=== PATIENT | female | born 1960 | race Caucasian/White ===

== ENCOUNTER 2019-01-04 00:40 | Outpatient (CLI) | payer OTHER, SELFPAY ==
--- NOTE | 2019-01-04 11:47 | DI.US_ITS ---
SYMPTOMS/DIAGNOSIS: ABD PAIN, R10.11 ABDOMEN ULTRASOUND: The liver shows slightly increased echogenicity consistent with fatty infiltration. No biliary dilatation or focal liver lesions are seen. The gallbladder has a normal appearance, without evidence of stones or wall thickening. The kidneys, pancreas, spleen and aorta appear normal. No ascites is present. IMPRESSION: Mild hepatic steatosis. No acute abnormality.
== END 2019-01-04 01:00 ==
PROVIDERS: PCP Nurse Practitioner Family; Visit Provider Nurse Practitioner Family
DX: R10.11 Right upper quadrant pain (principal); K76.0 Fatty (change of) liver, not elsewhere classified
CPT/HCPCS: 76700

== ENCOUNTER 2019-04-07 01:19 | Outpatient (CLI) | payer OTHER, SELFPAY ==
--- NOTE | 2019-04-07 15:58 | DI.MAMMO_ITS ---
EXAM: MG MAMMO SCREENING CLINICAL HISTORY: SCREENING Z12.39 TECHNIQUE: Bilateral full field digital CC and MLO mammographic images were obtained with 3D tomosyn thesis and utilizing computer aided detection (CAD). COMPARISON: Available for comparison. FINDINGS: Masses/Architectural Distortion: None seen. Microcalcifications: No suspicious pleomorphic-type are seen. Skin Thickening/Nipple Retraction: None. IMPRESSION: 1. No significant interval change with no specific features of malignancy noted. 2. Unless there is more urgent need, screening mammography is recommended, as per [employer] guidelines. ACR BI-RAD Category- 1 Negative Breast Density - Category B - Scattered areas of fibroglandular density A negative radiographic report should not delay biopsy if a dominant or clinically suspicious mass is present. Up to ten percent of cancers are not identified on mammography. A negative report may reinforce clinical impression. Adenosis and dense breasts may obscure an underlying neoplasm. False positive reports average 6 to 10%. Patient will receive a letter notifying them of these results.
== END 2019-04-07 01:39 ==
PROVIDERS: PCP Nurse Practitioner Family; Visit Provider Nurse Practitioner Family
DX: Z12.31 Encounter for screening mammogram for malignant neoplasm of breast (principal)
CPT/HCPCS: 77063; 77067

== ENCOUNTER 2019-09-20 10:57 | Emergency (ER) | payer OTHER, SELFPAY ==
[2019-09-20] VITALS (56 sets, daily range): BP systolic 131–176; BP diastolic 58–115; PULSE 57–100; RESP 9–23; TEMP 36.4; O2SAT 95–100
--- NOTE | 2019-09-20 11:30 | DI.RAD_ITS ---
EXAM: XR CHEST 2V PA LATERAL CLINICAL HISTORY: chest heaviness TECHNIQUE: 2D digital imaging was performed. COMPARISON: No exams were available for comparison FINDINGS: MEDIASTINUM: Normal. HEART: Normal. PULMONARY VASCULATURE: Normal. LUNGS: Clear. PLEURAL SPACE: No pleural effusion or pneumothorax. BONE:Normal. OTHER FINDINGS:Normal. IMPRESSION: No acute pulmonary findings. DATA REPOSITORY: RADIATION DOSE DELIVERED:
[2019-09-20 11:31] LABS: Abs Immature Grans 0.02 k/cumm (0.0-0.09); Absolute Basophil Count 0.02 k/cumm (0.0-0.2); Absolute Eosinophil Count 0.06 k/cumm (0.0-0.7); Absolute Lymphocyte Count 1.98 k/cumm (1.2-3.4); Absolute Monocyte Count 0.44 k/cumm (0.11-0.7); Absolute Neutrophil Count 4.04 k/cumm (1.2-6.7); Basophils % 0.3; Eosinophils % 0.9; HCT 44.4 % (36.0-46.0); HGB 14.7 g/dL (12.0-15.5); Immature Grans % 0.3 %; Lymphocytes % 30.2; Mean Corp. HGB Concentration 33.1 g/dL (32.0-36.0); Mean Corpuscular Volume 93.7 fL (80-95); Mean Platelet Volume 10.1 fL (8.0-11.0); Monocytes % 6.7; Neutrophils % 61.6; Platelet Count 276 x1000/uL (130-400); RBC 4.74 m/cumm (4.00-5.20); RBC Distribution Width 13.8 % (11.7-14.6); White Blood Cell Count 6.56 k/cumm (4.4-10.8)
--- NOTE | 2019-09-20 11:41 | ED.GENADUL_ITS ---
Discharge Plan Disposition Patient Disposition: [facility] Condition: Serious Discharge Details Chief Complaint: Palpitatns Clinical Impression: Non-ST elevation SD (NSTEMI) Primary Care Provider: Ahmet Nash ED Provider: Desmond Hurst Home Meds and New Rx's Prescriptions: No Action No Known Home Meds RF: 0 Discharge Data Discharge Date/Time-TO BE ENTERED AT DEPARTURE: 09/20/19 16:19 Medical Decision Making 1140??59-year-old female, chronic smoker, history of high cholesterol per patient, here with bilateral arm heaviness with chest and back heaviness intermittent over the past day. Patient is saturating well in no respiratory distress. Lungs are clear to auscultation. Concern for ACS. Screening ECG was reviewed and interpreted by me: Sinus rhythm 60 bpm, short [place] 106, QTc 438, ST depressions are subtle but noted the 4 to V6, also noted subtle S1Q3T3, no STEMI, nondiagnostic. Plan to check troponin. Consider pulmonary embolism. Patient is low risk by Wells criteria. I will check d-dimer. Patient notes chronic although increased palpitations recently. While EKG does not reveal any ectopy, I did interpret rhythm strip on financial health counselor and noted intermittent PVCs that patient was experiencing as palpitations. Patient is quite anxious to be contributing to her symptoms. I will provide Ativan 0.5 mg IV as an anxiolytic. No concern for COVID-19. Patient is not a PUI. 12:13 --labs reviewed and troponin is elevated. Plan to start heparin bolus and infusion, nitro infusions to start should she have recurrent pain, aspirin 325 mg and Plavix 600 mg. Contacted [facility] transfer center to request transfer. D-dimer is elevated. I will proceed to CTA of the chest. 12:30 --I spoke with Stella, account support specialist at [facility] who will accept the patient on behalf of Dr. Farah. Reviewed ED course and treatment and no further recommendations at this time. Awaiting bed confirmation. --CT interpreted by radiology: IMPRESSION: No evidence of pulmonary embolus, thoracic aortic dissection or aneurysm. 1458 --repeat ECG reviewed and interpreted by me: Sinus rhythm 64 bpm, short [place] 118, ST depressions less pronounced laterally, no ST elevation, T wave inversion again noted lead III. Patient reassessed multiple times and has not had recurrent chest pain. Currently stable. Still awaiting transfer. We called [facility] transfer center to request updated they noted hopefully within the hour. HPI General Mode of arrival: ambulatory . Date/Time Provider Initiated Documentation: 09/20/19 11:00 . Limitations to Documentation: no limitations . Information obtained by: patient . HPI Narrative: 59-year-old female smoker with history of elevated cholesterol, presents with chief complaint of heaviness in her upper extremities. Patient notes symptoms started yesterday morning and have persisted. Patient notes intermittent heaviness bilateral upper arms and also some heaviness in her chest and back. Symptoms worse when she was going outside to garden today. She had associated dizziness. She also notes some palpitations which she has had chronic intermittently but more frequent recently. She has no leg swelling or calf pain. No recent immobility. No fever. No cough. No recent travel. Related Data Home Medications Medication Instructions Recorded Confirmed Unknown [No Known Home Meds] 09/20/19 09/20/19 Allergies Allergy/AdvReac Type Severity Reaction Status Date / Time No Known Allergies Allergy Unverified 09/20/19 11:08 General Stated Complaint: Palpitatns YVES: 2 Review of Systems All systems reviewed & are unremarkable except as noted in HPI and below Cardiovascular Cardiovascular: Reports as per HPI Respiratory Respiratory: Reports as per HPI [facility] Medical History Postmenopausal LMP 2011 Tobacco use disorder Surgical History Colposcopy (~1985) For cervical dysplasia Ligation of fallopian tube (05/03/86) Family History Mother , Cervical CA at age 50. Personal history of malignant neoplasm Cervical CA Father No problems noted. Sister No problems noted. Social History Smoking/Tobacco Use Status: Current every day Tobacco Type: cigarettes Alcohol Intake: never Substance use type: does not use Do you feel safe at home: Yes Do you feel safe in your relationship?: Yes Exam Const General: cooperative, well developed and anxious Orientation: alert and awake HENMT Mouth: moist mucous membranes Eyes Conjunctivae: normal conjunctivae Sclera: normal sclerae Neck Neck: trachea midline and no JVD Resp Auscultation: clear to auscultation bilaterally, no rales, no rhonchi and no w heezes Cardio Jugular venous pressure: no JVD Rate: regular rate and not tachycardic Rhythm: regular rhythm Pulses: radial pulses present GI Palpation: soft, not firm, no guarding, no masses, not rigid and nontender Auscultation: normal bowel sounds Skin General skin exam: no rashes or lesions noted Neuro General: patient alert, patient awake, patient oriented x3 and tone normal Extrem General: no calf tenderness and no edema Psych Appearance: grossly normal Mental Status: mental status grossly normal Course Vital Signs Vital signs: Vital Signs Temperature 36.4 C L 09/20/19 11:03 Pulse 69 09/20/19 11:03 Respiratory Rate 13 09/20/19 11:03 Blood Pressure 153/91 H 09/20/19 11:03 Pulse Oximetry 100 09/20/19 11:03 Temperature 36.4 C L 09/20/19 11:03 Temperature Source Skin 09/20/19 11:03 Pulse 69 09/20/19 11:03 Respiratory Rate 13 09/20/19 11:03 Respiratory Effort 09/20/19 11:08 Blood Pressure 153/91 H 09/20/19 11:03 Blood Pressure Position Sitting 09/20/19 11:03 Pulse Oximetry 100 09/20/19 11:03 Oxygen Delivery Method Room Air 09/20/19 11:03 Oxygen Flow Rate 0 09/20/19 11:03 Lab/Test Results Lab/Test Results: Laboratory Tests Range/Units 09/20/19 11:20 WBC (4.4-10.8) k/cumm 6.56 RBC (4.00-5.20) m/cumm 4.74 Hgb (12.0-15.5) g/dL 14.7 Hct (36.0-46.0) % 44.4 MCV (80-95) fL 93.7 MCH (27.0-33.0) pg 31.0 MCHC (32.0-36.0) g/dL 33.1 RDW (11.7-14.6) % 13.8 Plt Count (130-400) x1000/uL 276 MPV (8.0-11.0) fL 10.1 Immature Gran % % 0.3 Neutrophils % 61.6 Lymphocytes % 30.2 Monocytes % 6.7 Eosinophils % 0.9 Basophils % 0.3 Absolute Neutrophils (1.2-6.7) k/cumm 4.04 Absolute Lymphocytes (1.2-3.4) k/cumm 1.98 Absolute Monocytes (0.11-0.7) k/cumm 0.44 Absolute Eosinophils (0.0-0.7) k/cumm 0.06 Absolute Basophils (0.0-0.2) k/cumm 0.02 Critical Care Time Critical Care Time Critical Care Time: Yes Total Critical Care Time: 45 Attestation: I spent greater than 45 number of minutes addressing this patient's immediate life threats. Please see MDM section of note. This time was spent engaged in work directly related to the patient's care, exclusive of separate procedures, and failure to initiate these interventions would have likely resulted in clinically significant or life threatening deterioration in the patient's condition.
[2019-09-20] MEDS: Normal Saline Flush 10 ML SYR IVP ×2 (11:46→16:16)
[2019-09-20] MEDS: LORazepam 2 MG/ML VIAL 0.5 MG IVP (11:46)
[2019-09-20 11:52] LABS: ALT 29 U/L (14-59); AST 22 U/L (15-37); Alkaline Phosphatase 125 U/L (46-116); BUN 15 mg/dL (7-18); Bilirubin, Total 0.3 mg/dL (0.2-1.0); CREATININE 0.86 mg/dL (0.55-1.02); Calcium 9.4 mg/dL (8.5-10.1); Chloride 103 mmol/L (98-107); Glucose 114 mg/dL (74-106); Magnesium 1.7 mg/dL (1.8-2.4); Potassium 3.9 mmol/L (3.5-5.1); Sodium 138 mmol/L (136-145); Total Protein 7.9 g/dL (6.4-8.2)
[2019-09-20 11:54] LABS: Troponin I 0.63 ng/Ml (<0.06)
[2019-09-20] MEDS: Aspirin 325 MG TAB PO (12:00)
--- NOTE | 2019-09-20 12:00 | DI.CT_ITS ---
EXAM: CT CHEST PE CTA CLINICAL HISTORY: chest pain, elevated ddimer. TECHNIQUE: Imaging Protocol: Axial CT angiography was performed with multi-slice acquisition and mu lti-planar and/or 3D reconstructions. CONTRAST MATERIAL: Intravenous: Omnipaque 350 Contrast volume:74 mL COMPARISON: CR XR CHEST 2V PA LATERAL from 09/20/2019 FINDINGS: Pulmonary Arteries: No evidence of filling defect to suggest pulmonary emboli. Tracheobronchial tree: Patent where visualized. Mediastinum and Tess: No dominant adenopathy or fluid collection. Pulmonary parenchyma: No consolidation or dominant measurable mass. No architectural distortion. Pleura: No effusion or pneumothorax. Heart: The heart is not dilated. Mild coronary artery calcification is present. Pericardial effusion . Aorta: Thoracic aorta non-dilated. No dissection. Mild atherosclerosis. Upper abdomen: Unremarkable. Bones: Age appropriate degenerative changes. IMPRESSION: No evidence of pulmonary embolus, thoracic aortic dissection or aneurysm. The findings were discussed with the emergency department on the date of the examination. RADIATION DOSE DELIVERED: 410.29mGy.cm Total DLP DATA REPOSITORY: All CT scans at this facility are submitted to the National Radiology Data Registry (NRDR) Dose Index Registry (DIR) with the [employer] (ACR). RADIATION OPTIMIZATION: All CT scans at this facility use at least one of these dose optimization te chniques: automated exposure control; mA and/or kV adjustment per patient size (includes targeted exa ms where dose is matched to clinical indication); or iterative reconstruction.
[2019-09-20 12:11] LABS: D-Dimer 715 ng/mlFEU (<500)
[2019-09-20] MEDS: Clopidogrel 300 MG TAB 600 MG PO (12:15)
[2019-09-20] MEDS: Magnesium Oxide 400 MG TAB 800 MG PO (12:16)
[2019-09-20] MEDS: Omnipaque 350 MG/ML 100 ML BTL IJ (13:06)
[2019-09-20 15:20] LABS: Troponin I 0.95 ng/Ml (<0.06)
[2019-09-20] MEDS: LORazepam 2 MG/ML VIAL (16:08)
== END 2019-09-20 16:19 | disposition short-term general hospital (02) ==
PROVIDERS: Emergency Provider Student in an Organized Health Care Education/Training Program; PCP Nurse Practitioner Family
DX: I21.4 Non-ST elevation (NSTEMI) myocardial infarction (principal); R79.1 Abnormal coagulation profile; F17.210 Nicotine dependence, cigarettes, uncomplicated
CPT/HCPCS: 36415; 71275; 80053; 93005; 96365; 96366; 96375; 96376; 99285; 71046; 83735; 84484; 85025; 85379; 93010; J2060; J3490

== ENCOUNTER 2019-10-25 11:53 | Outpatient (REF) | payer OTHER, SELFPAY ==
--- NOTE | 2019-10-25 11:30 | PAPFT_PTH ---
PATIENT: Marzena Smith LOC: N U#:[id number] AGE/SX: 59/F ROOM: RE10/25/[address]: Kamaljit Duran MD : 1960 BED: DIS: 10/25/2019 SPEC #: [id number] RECD: 10/25/19 17:47 STATUS: MADISONRafael REQ #: [id number] BERNARDINO: 10/25/19 11:[address]: Kamaljit Duran DEPT: [facility] Cytology RECD BY: Liz Schmid ENTERED: 10/25/19 17:48 SP TYPE: PAPFT OTHR DR: Ahmet Nash Tissues: 1 - CX/ENDOCX FOR PAP SMEARS Procedures: PAP THIN PREP/UVM Screening HPV DNA PROBE Comments: [id number]
== END 2019-10-25 12:13 ==
LOC: LBN 11:53
PROVIDERS: PCP Nurse Practitioner Family; Visit Provider Obstetrics & Gynecology
DX: Z12.4 Encounter for screening for malignant neoplasm of cervix (principal); Z11.51 Encounter for screening for human papillomavirus (HPV)
CPT/HCPCS: 88142; 87624

== ENCOUNTER 2019-11-30 15:01 | Outpatient (RCR) | payer OTHER, SELFPAY | END 2019-12-02 23:59 | disposition home or self-care (01) | LOC: CR 15:01 | PROVIDERS: PCP Nurse Practitioner Family; Visit Provider Family Medicine | DX: R69 Illness, unspecified (principal) ==

== ENCOUNTER 2020-01-03 14:30 | Outpatient (RCR) | payer OTHER, SELFPAY | END 2020-02-01 23:59 | disposition home or self-care (01) | LOC: CR 14:30 | PROVIDERS: PCP Nurse Practitioner Family; Visit Provider Family Medicine | DX: R69 Illness, unspecified (principal) ==

== ENCOUNTER 2020-08-09 12:05 | Outpatient (CLI) | payer OTHER, SELFPAY ==
--- NOTE | 2020-08-09 | DI.RAD_ITS ---
EXAM: XR KNEE RT 3V AP,LAT,SHANI CLINICAL HISTORY: INTERNAL DERANGEMENT RT KNEE, M23.91. TECHNIQUE: 2D digital imaging was performed. COMPARISON: No exams were available for comparison FINDINGS: BONES: No acute fracture is present. No bony destructive lesion is seen. JOINTS: The knee is normally aligned. No joint effusion is seen. The joint spaces are well maintained . SOFT TISSUE: Normal. IMPRESSION: Unremarkable radiographs of the right knee. DATA REPOSITORY: RADIATION DOSE DELIVERED:
== END 2020-08-09 12:25 ==
PROVIDERS: PCP Nurse Practitioner Family; Visit Provider Physician Assistant Medical
DX: M23.91 Unspecified internal derangement of right knee (principal)
CPT/HCPCS: 73562

== ENCOUNTER 2022-11-20 18:58 | Emergency (ER) | payer OTHER, SELFPAY ==
[2022-11-20] VITALS (47 sets, daily range): BP systolic 112–164; BP diastolic 60–103; PULSE 60–85; RESP 11–20; O2SAT 92–98
--- NOTE | 2022-11-20 19:00 | DI.RAD_ITS ---
Exam(s) XR PORTABLE CHEST AP EXAM: XR PORTABLE CHEST AP CLINICAL HISTORY: chest pain equivalent TECHNIQUE: 2D digital imaging was performed. COMPARISON: CR XR CHEST 2V PA LATERAL from 09/20/2019 FINDINGS: LUNGS: Clear. No pleural abnormality seen. HEART: Normal size. AORTA: Normal diameter. BONES: Unremarkable for age. Soft tissues: Unremarkable. IMPRESSION: No acute findings. DATA REPOSITORY: RADIATION DOSE DELIVERED:
--- NOTE | 2022-11-20 19:00 | RT.EKG_ITS ---
APPROVED REPORT Exam: Resting ECG Reason for Exam: chest pain Patient Location: E HR:85 bpm ECG Measurements Heart Rate 85 AXIS NV 117 P 65 QRSd 95 QRS 62 QT 381 T 40 QTc 453 Conclusion Sinus rhythm...normal P axis, V-rate 60- 99 sinus rhtyhm, normal axis, normal intervals, t wave inversion V1
--- NOTE | 2022-11-20 19:03 | ED.GENADUL_ITS ---
Discharge Plan Discharge Details Chief Complaint: Chest Pain ED Provider: Marco Lazo Home Meds and New Rx's Prescriptions: No Action metoprolol succinate 25 mg capsule,sprinkle,ER 24hr 25 mg PO DAILY aspirin 81 mg tablet,delayed release (DR/EC) 81 mg PO DAILY atorvastatin 80 mg tablet 80 mg PO DAILY clopidogrel 75 mg tablet 75 mg PO DAILY nitroglycerin 0.4 mg tablet, sublingual 0.4 mg SL Q5M PRN Rx Instructions: do not exceed 3 doses per episode Medical Decision Making 62-year-old female history of NSTEMI, stent, presents with cute onset lightheadedness right upper extremity paresthesia noted to be diaphoretic and cool to the touch, EKG normal sinus rhythm normal axis T wave inversion V1 otherwise nonischemic. Given patient's age prior medical history and risk factors patient is moderate risk heart score, currently hemodynamically stable not hypoxic nontachycardic. Will obtain serial troponin, basic labs, portable chest x-ray, fluid bolus prophylactic antiemetic chewable aspirin 324 close reassessment of symptoms. Consider ACS versus orthostasis versus vasovagal versus viral illness versus dehydration versus electrolyte abnormality low suspicion for CVA PE or aortic pathology given history and physical, disposition pending reassessment 19: 50 patient's coloration and perfusion exam greatly improved, no longer clammy no further paresthesia, no chest pain or shortness of breath. Hemodynamically stable. Pending two troponin and reassessment for discharge. Consider dehydration versus orthostasis versus vasovagal HPI General Date/Time Provider Initiated Documentation: 11/20/22 19:00 . HPI Narrative: 62-year-old female history of NSTEMI, stent, presents feeling lightheaded with paresthesia to right upper extremity no nausea no vomiting no shortness of breath no leg swelling or pain. No history of thromboembolic disease. No recent travel. Related Data Home Medications Medication Instructions Recorded Confirmed aspirin 81 mg tablet,delayed 81 mg PO DAILY 10/25/19 10/25/19 release atorvastatin 80 mg tablet 80 mg PO DAILY 10/25/19 10/25/19 clopidogrel 75 mg tablet 75 mg PO DAILY 10/25/19 10/25/19 metoprolol succinate 25 mg capsule 25 mg PO DAILY 10/25/19 10/25/19 sprinkle, ext. release 24 hr nitroglycerin 0.4 mg sublingual 0.4 mg sublingual Q5M PRN 10/25/19 10/25/19 tablet Allergies Allergy/AdvReac Type Severity Reaction Status Date / Time No Known Allergies Allergy Verified 05/29/20 10:43 General YVES: 2 Review of Systems Narrative: Physical Examination General: alert, awake, cooperative, appears moderately uncomfortable HEENT: normocephalic, atraumatic; PERRL, EOM intact, conjunctiva normal; no nasal discharge; moist mucous membranes, oral and pharyngeal mucosa normal, tolerating secretions Neck: supple, trachea midline; full ROM Chest: normal to inspection Respiratory: normal respiratory effort, speaking in full sentences, clear to auscultation, no wheezing, rales or rhonchi Cardiac: regular rate, regular rhythm, S1S2 intact, no murmurs rubs or gallops GI: abdomen soft, non-tender, non-distended; no palpable mass or hepatosplenomegaly Skin: Cool, diaphoretic Neuro: AAOx3, normal speech, moving all extremities Extremities: No peripheral edema Psych: Appropriate mood and affect PFSH All Active Problems (Updated 11/15/19 @ 09:56 by Chaz Tellez NP) Encounter for screening for other viral diseases (Acute) Non-STEMI (non-ST elevated myocardial infarction) (Acute) Women's annual routine gynecological examination (Acute) Medical History (Updated 11/15/19 @ 09:56 by Chaz Tellez NP) Postmenopausal LMP 2012 Tobacco use disorder Surgical History Colposcopy (~1985) For cervical dysplasia Ligation of fallopian tube (05/03/86) Family History Mother , Cervical CA at age 50. Personal history of malignant neoplasm Cervical CA Father No problems noted. Sister No problems noted. Social History (Updated 10/25/19 @ 12:56 by Ursula Duggan RN, RN) Smoking/Tobacco Use Status: Current every day Tobacco Type: cigarettes Smoking packs per day: 0.5 Smoking cigarettes per day: 10.0 Smoking risk assessment performed?: Yes Alcohol Intake: never Substance use type: does not use Do you feel safe at home: Yes Do you feel safe in your relationship?: Yes
[2022-11-20 19:29] LABS: Abs Immature Grans 0.02 10^3/uL (0.0-0.06); Absolute Basophil Count 0.05 10^3/uL (0.0-0.2); Absolute Lymphocyte Count 1.64 10^3/uL (1.2-3.4); Absolute Monocyte Count 0.67 10^3/uL (0.1-0.8); Basophils % 0.7; Eosinophils % 1.5; HCT 43.9 % (36.0-46.0); HGB 14.2 g/dL (11.2-15.7); Immature Grans % 0.3; Lymphocytes % 24.6; MCH 30.5 pg (27.0-33.0); MCHC 32.3 % (32.0-36.0); MCV 94 fL (80-95); MPV 9.8 fL (8.0-11.0); Neutrophils % 62.9; Platelet Count 232 10^3/uL (130-400); RBC 4.65 10^6/uL (3.93-5.22); RDW 13.2 % (11.7-14.6); RDW-SD 45.9 fL; WBC 6.68 10^3/uL (4.4-10.8)
[2022-11-20] MEDS: Normal Saline 1,000 ML 1000 ML IV (19:30)
[2022-11-20] MEDS: Aspirin 81 MG CHEW 324 MG CH (19:37)
[2022-11-20] MEDS: Ondansetron 4 MG/2 ML VIAL IVP (19:38)
[2022-11-20 19:45] LABS: INR 0.9 (0.9-1.1); PTT Activated 25.1 sec (21.5-31.9); Prothrombin Time 9.6 sec (9.3-11.0)
--- NOTE | 2022-11-20 19:47 | DI.VRAD_ITS ---
PROCEDURE INFORMATION: Exam: XR Chest Exam date and time: 11/20/2022 7:34 PM Age: 62 years old Clinical indication: Chest wall pain; Additional info: Chest pain equivalent TECHNIQUE: Imaging protocol: Radiologic exam of the chest. Views: 1 view. Other technique: Portable exam. COMPARISON: CR XR CHEST 2V PA LATERAL 09/20/2019 12:01 PM FINDINGS: Lungs: Unremarkable. No consolidation. Pleural spaces: Unremarkable. No pleural effusion. No pneumothorax. Heart/Mediastinum: Unremarkable. No cardiomegaly. Bones/joints: Unremarkable. IMPRESSION: No evidence for acute abnormality in the chest. Dictated and Authenticated by: Enedina Linn MD. Ordering:GILBERT Lara MD
[2022-11-20 20:04] LABS: ALT 20 U/L (14-59); AST 13 U/L (15-37); Albumin 3.7 g/dL (3.4-5.0); Alkaline Phosphatase 133 U/L (46-116); Anion Gap 7.5 mmol/L (3-11); BUN 24 mg/dL (7-18); Bilirubin, Total 0.2 mg/dL (0.2-1.0); CO2 27.5 mmol/L (21.0-32.0); CREATININE 0.9 mg/dL (0.55-1.02); Calcium 9.4 mg/dL (8.5-10.1); Chloride 108 mmol/L (98-107); Estimated GFR 71.83 (mL/min/1.73m2); Glucose 98 mg/dL (74-106); NT-proBNP 186 pg/mL (<300); Potassium 4.3 mmol/L (3.5-5.1); Sodium 143 mmol/L (136-145); Total Protein 7.2 g/dL (6.4-8.2); Troponin I < 50 ng/L (<or=60)
[2022-11-20 22:39] LABS: Troponin I < 50 ng/L (<or=60)
--- NOTE | 2022-11-20 23:06 | W.EDPROG ---
Date of service: 11/20/22 Time of Service: 23:06 Medical Decision Making Pt signed out to me pending second trop which was negative and she has had normal tele monitoring and stable vitals. Sleeping on reassessment and awakens easily. She is asympatomtic, presentation seems consistent with a vasovagal or orthostasis. She is stable for d/c, will f/u with her pcp, return precautions given Sign Out Sign Out Data: Sign Out Comment: acute onset diaphoresis RUE paresthesia, treating as chest pain equivalent given hx of NSTEMI; ekg non ischemic, greatly improved with rest and fluid; consider orthostasis v dehydration v vasovagal v ACS; pending two trop and reassessment for dispo Last updated by Marco Lazo MD at 11/20/22 19:54 Discharge Plan Disposition Patient Disposition: Home Condition: Stable Discharge Details Clinical Impression: Chest pain Primary Care Provider: Unknown,Unknown ED Provider: Jimbo Hollis Home Meds and New Rx's Prescriptions: Continued metoprolol succinate 25 mg capsule,maryaninkle,ER 24hr 25 mg PO DAILY aspirin 81 mg tablet,delayed release (DR/EC) 81 mg PO DAILY atorvastatin 80 mg tablet 80 mg PO DAILY clopidogrel 75 mg tablet 75 mg PO DAILY nitroglycerin 0.4 mg tablet, sublingual 0.4 mg SL Q5M PRN Rx Instructions: do not exceed 3 doses per episode Discharge Instructions Instructions: Chest Pain (ED) Additional Instructions: Your blood work and ekg's did not show concerning findings. This most likely was a vasovagal episode If you feel more ill, have severe worsening pain or trouble breathing return to the emergency department Follow up with your primary care provider within 1-2 weeks
== END 2022-11-20 23:23 | disposition home or self-care (01) ==
PROVIDERS: Emergency Medicine; Emergency Provider Emergency Medicine
DX: R07.9 Chest pain, unspecified (principal); I25.2 Old myocardial infarction; Z79.82 Long term (current) use of aspirin; Z79.02 Long term (current) use of antithrombotics/antiplatelets; Z95.5 Presence of coronary angioplasty implant and graft; F17.210 Nicotine dependence, cigarettes, uncomplicated
CPT/HCPCS: 36415; 80053; 93005; 96360; 99284; 71045; 83735; 83880; 84484; 85025; 85610; 85730; 93010; 99283; J2405

== ENCOUNTER 2023-07-20 02:30 | Observation (INO) | payer OTHER, SELFPAY ==
[2023-07-20] VITALS (66 sets, daily range): BP systolic 128–194; BP diastolic 68–110; PULSE 50–105; RESP 11–27; TEMP 37.3–37.5; O2SAT 92–98
--- NOTE | 2023-07-20 02:30 | RT.EKG_ITS ---
APPROVED REPORT Exam: Resting ECG Reason for Exam: chest pain Patient Location: E HR:82 bpm ECG Measurements Heart Rate 82 AXIS UT 121 P 66 QRSd 91 QRS 63 QT 385 T -5 QTc 449 Conclusion Sinus rhythm...normal P axis, V-rate 60- 99 Physician: no evidence of STEMI. Questionable minimal less than a millimeter depression in V3 and V4 , no ST elevation
--- NOTE | 2023-07-20 02:30 | DI.RAD_ITS ---
Exam(s) XR PORTABLE CHEST AP EXAM: XR PORTABLE CHEST AP CLINICAL HISTORY: central chest pain. TECHNIQUE: 2D digital imaging was performed. COMPARISON: Prior chest x-ray 11/20/2022 FINDINGS: Single AP portable view. Heart size is upper normal. The mediastinum is not widened. Lungs are clear. No infiltrates nor obvious pleural effusions. IMPRESSION: No acute pulmonary findings on this single AP portable view of the chest. DATA REPOSITORY: RADIATION DOSE DELIVERED:
[2023-07-20] MEDS: Aspirin 81 MG CHEW (02:41)
--- NOTE | 2023-07-20 02:44 | W.ED.GENAD ---
Discharge Plan Disposition Patient Disposition: Admit to [facility] Condition: Good Discharge Details Clinical Impression: Unstable angina, Non-ST elevation PA (NSTEMI) Primary Care Provider: Unknown,Unknown ED Provider: Chaka He Home Meds and New Rx's Prescriptions: No Action metoprolol succinate 25 mg capsule,sprinkle,ER 24hr 25 mg PO DAILY aspirin 81 mg tablet,delayed release (DR/EC) 81 mg PO DAILY atorvastatin 80 mg tablet 80 mg PO DAILY clopidogrel 75 mg tablet 75 mg PO DAILY nitroglycerin 0.4 mg tablet, sublingual 0.4 mg SL Q5M PRN Rx Instructions: do not exceed 3 doses per episode HPI General Date/Time Provider Initiated Documentation: 07/20/23 02:43. HPI Narrative: This is a very pleasant 63-year-old female with a past medical history of PA/stent, hypertension, high cholesterol, tobacco use, occasional marijuana use, who presents today for evaluation of chest pain. Patient states that 4 hours ago at around 1030 she developed chest heaviness tightness, it came and went in severity. It radiated to her left shoulder and jaw. She states that it felt similar to her previous heart condition/heart attack. She took a shower but this did not help. Eventually as the pain continued throughout the night she came to the ER for further assessment. She denies vomiting or diarrhea. She denies tearing or ripping sensation. No pain with breathing. She denies any exertional dyspnea over the last few days. No other complaints at this time. No other modifying factors. Related Data Home Medications Medication Instructions Recorded Confirmed aspirin 81 mg tablet,delayed 81 mg PO DAILY 10/25/19 07/20/23 release atorvastatin 80 mg tablet 80 mg PO DAILY 10/25/19 07/20/23 clopidogrel 75 mg tablet 75 mg PO DAILY 10/25/19 07/20/23 metoprolol succinate 25 mg capsule 25 mg PO DAILY 10/25/19 07/20/23 sprinkle, ext. release 24 hr nitroglycerin 0.4 mg sublingual 0.4 mg sublingual Q5M PRN 10/25/19 07/20/23 tablet Allergies Allergy/AdvReac Type Severity Reaction Status Date / Time No Known Allergies Allergy Verified 07/20/23 03:00 General Stated Complaint: Chest Pain YVES: 2 Review of Systems All systems reviewed & are unremarkable except as noted in HPI and below Exam Narrative Exam Narrative: 1.Const: Well-nourished, Well-developed, appearing stated age 2.Eyes: PERRL, no conjunctival injection, and symmetrical lids. 3.ENT: Atraumatic external nose and ears. Moist MM. Neck: Symmetric, trachea midline, No thyromegaly. 4.CVS: +S1/S2, No murmurs or gallops. Peripheral pulses 2+ and equal in all extremities. Brisk capillary refill in all extremities. 5.RESP: Unlabored respiratory effort. Clear to auscultation bilaterally. No wheezes rales or rhonchi 6.GI: Soft, Nontender/Nondistended, No hepatosplenomegaly. No guarding or rebound. 7.MSK: Normocephalic/Atraumatic, Extremities w/o deformity or ttp No cyanosis or clubbing, Normal movement of all extremities 8.Skin: Warm, Dry. No rashes or lesions. 9.Neuro: manager product support II-XII grossly intact. Sensation grossly intact, no focal neurologic deficits. 10.Psych: (AAO) x3. Appropriate mood and affect Course Vital Signs Vital signs: Vital Signs Pulse 95 H 07/20/23 02:33 Respiratory Rate 18 07/20/23 02:33 Pulse Oximetry 96 07/20/23 02:33 Pulse 95 H 07/20/23 02:33 Respiratory Rate 18 07/20/23 02:33 Respiratory Effort Normal 07/20/23 02:36 Pulse Oximetry 96 07/20/23 02:33 Medical Decision Making This is a very pleasant 63-year-old female with a past medical history of PA/stent, hypertension, high cholesterol, tobacco use, occasional marijuana use, who presents today for evaluation of chest pain. Patient states that 4 hours ago at around 1030 she developed chest heaviness tightness, it came and went in severity. It radiated to her left shoulder and jaw. She states that it felt similar to her previous heart condition/heart attack. She took a shower but this did not help. Eventually as the pain continued throughout the night she came to the ER for further assessment. She denies vomiting or diarrhea. She denies tearing or ripping sensation. No pain with breathing. She denies any exertional dyspnea over the last few days. No other complaints at this time. No other modifying factors. Exam demonstrates well-appearing female, mild distress. Vital signs stable. EKG shows no evidence of STEMI. Questionable minimal less than a millimeter depression in V3 and V4, no ST elevation. Concern for unstable angina, esophageal spasm, Prinzmetal's angina, less likely dissection or PE. We will give 325 aspirin out of highest likelihood differential, we will give nitroglycerin, evaluate for concerning etiologies, monitor closely and reassess. 4 AM Laboratory workup demonstrates positive troponin at 285. With a positive troponin and the symptoms I am concerned for unstable angina. We will heparinize the patient. Patient's D-dimer is elevated at 750. We will get a CTA. Patient's pain completely resolved with nitroglycerin aside from mild achiness in her left arm. Will reach out to [facility] for potential transfer. 5:17 AM Patient remains pain-free. She remains very pleasant. Discussed the case with [facility] Dr. Robins, she agrees with the assessment and plan and recommends transfer. No bed currently available. Recommends that we continue to hold her until bed becomes available. Patient will be admitted under Dr. Noel. Patient is already heparinized, she has already received 325 aspirin, will also give her 80 of atorvastatin and 25 of metoprolol oral. As the patient is pain-free, [facility] recommends holding Plavix for the time being. Discussed the case with the hospitalist Dr. Peck here. He agrees with the assessment and plan. I have extensively reviewed the treatment plan with the patient. I have addressed all patient concerns at this time. I have also discussed the plan with the admitting physician and they agree with the current assessment and plan and have agreed to assume responsibility for the patient. All parties demonstrate verbal understanding and agreement with our assessment and plan at this time. The documentation in this chart was dictated using [employer] dictation software. Please excuse any dictation errors. FINDINGS: Limitations: Mild motion artifact. Pulmonary arteries: No pulmonary embolus is appreciated. Aorta: No thoracic aortic aneurysm seen. 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 Other arteries: Arterial calcifications. Lungs: No focal consolidation seen. Pleural spaces: No pleural effusion. Heart: No pericardial effusion. Coronary arteries: Coronary artery calcifications. Mediastinal space: Mild esophageal thickening. Lymph nodes: No acute abnormality seen. Diaphragm: Small hiatal hernia. Liver: Hepatomegaly. Low attenuation lesions in the liver too small to accurately characterize on CT. Adrenal glands: Adrenal thickening. Stomach and bowel: Low attenuation lesion in the right kidney too small to accurately characterize on CT. Gastric distension. Bones/joints: No acute pertinent abnormality seen. Soft tissues: No acute pertinent abnormality seen. IMPRESSION: 1. No pulmonary embolus is appreciated. 2. Mild esophageal thickening. Consider esophagitis, less likely neoplasm. 3. 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 Thank you for allowing us to participate in the care of your patient. Dictated and Authenticated by: Rowan Cruz MD 07/20/2023 4:40 AM Eastern Time ([place] & [place]) Quality:SDOH Health Related Social Needs: No Data to Display Critical Care Time Critical Care Time Critical Care Time: Yes Total Critical Care Time: 45 Attestation: Upon my evaluation, this patient had a high probability of imminent or life-threatening deterioration, which required my direct attention, intervention, and personal management. I have personally provided 45 minutes of critical care time exclusive of time spent on separately billable procedures. Time includes review of laboratory data, radiology results, discussion with consultants, and monitoring for potential decompensation. Interventions were performed as documented. [facility] All Active Problems (Updated 07/20/23 @ 05:20 by Chaka He DO) Non-ST elevation PA (NSTEMI) (Acute) Unstable angina (Acute) Encounter for screening for other viral diseases (Acute) Non-STEMI (non-ST elevated myocardial infarction) (Acute) Women's annual routine gynecological examination (Acute) Medical History (Updated 07/20/23 @ 05:20 by Chaka He DO) Tobacco use disorder Postmenopausal LMP 2012 Surgical History Ligation of fallopian tube (05/03/86) Colposcopy (~1985) For cervical dysplasia Family History Mother , Cervical CA at age 50. Personal history of malignant neoplasm Cervical CA Father No problems noted. Sister No problems noted. Social History Smoking/Tobacco Use Status: Current every day Tobacco Type: cigarettes Smoking packs per day: 0.5 Smoking cigarettes per day: 10.0 Smoking risk assessment performed?: Yes Alcohol Intake: never Substance use type: does not use Do you feel safe at home: Yes Do you feel safe in your relationship?: Yes POCUS Exam (ED) Limited Cardiac Exam DATE OF EXAM: 07/20/23 TIME OF EXAM: 03:01 PROVIDER THAT PERFORMED THE STUDY: Chaka He IS THIS A REPEAT EXAM DURING THIS ENCOUNTER: no REASON FOR EXAM: Chest pain VISUALIZED STRUCTURES: Left atrium, Left ventricle, Right ventricle and Interventricular septum VIEW OBTAINED: Parasternal long-axis PERTINENT FINDINGS/IMPRESSION: No apparent abnormalities Exam complete
[2023-07-20] MEDS: nitroGLYcerin 0.4 MG TAB (02:47)
[2023-07-20 03:16] LABS: Abs Immature Grans 0.02 10^3/uL (0.0-0.06); Absolute Basophil Count 0.05 10^3/uL (0.0-0.2); Absolute Eosinophil Count 0.12 10^3/uL (0.0-0.7); Absolute Lymphocyte Count 1.71 10^3/uL (1.2-3.4); Absolute Monocyte Count 0.52 10^3/uL (0.1-0.8); Absolute Neutrophil Count 3.04 10^3/uL (1.2-6.7); Basophils % 0.9; Eosinophils % 2.2; HCT 41.6 % (36.0-46.0); HGB 13.4 g/dL (11.2-15.7); Immature Grans % 0.4; Lymphocytes % 31.3; MCH 30.8 pg (27.0-33.0); MCHC 32.2 % (32.0-36.0); MCV 96 fL (80-95); MPV 9.7 fL (8.0-11.0); Monocytes % 9.5; Neutrophils % 55.7; Platelet Count 236 10^3/uL (130-400); RBC 4.35 10^6/uL (3.93-5.22); RDW 13.2 % (11.7-14.6); RDW-SD 46.7 fL; WBC 5.46 10^3/uL (4.4-10.8)
[2023-07-20 03:34] LABS: ALT 29 U/L (14-59); AST 18 U/L (15-37); Albumin 3.4 g/dL (3.4-5.0); Alkaline Phosphatase 150 U/L (46-116); Anion Gap 7.2 mmol/L (3-11); BUN 18 mg/dL (7-18); Bilirubin, Total 0.2 mg/dL (0.2-1.0); CO2 30.8 mmol/L (21.0-32.0); CREATININE 0.9 mg/dL (0.55-1.02); Calcium 9.1 mg/dL (8.5-10.1); Chloride 107 mmol/L (98-107); Estimated GFR 71.39 (mL/min/1.73m2); Glucose 141 mg/dL (74-106); Potassium 3.8 mmol/L (3.5-5.1); Sodium 145 mmol/L (136-145); Total Protein 7.2 g/dL (6.4-8.2)
[2023-07-20 03:37] LABS: Prothrombin Time 10.3 sec (9.1-11.1); Troponin I 285 ng/L (< or =60)
--- NOTE | 2023-07-20 03:45 | DI.CT_ITS ---
Exam(s) CT CHEST PE CTA EXAM: CT CHEST PE CTA CLINICAL HISTORY: chest pain, elevated dimer. TECHNIQUE: Imaging Protocol: CT angiography of the chest was performed using pulmonary embolus minor col. Multi planar reconstructions were performed. CONTRAST MATERIAL: Intravenous: Omnipaque 350 Contrast volume: 100 cc COMPARISON: CT CT CHEST PE CTA from 09/20/2019 FINDINGS: CHEST: PULMONARY ARTERIES: There are no intraluminal filling defects to suggest acute pulmonary emboli. LUNGS: There are no infiltrates nor evidence of pulmonary infarction.. There are no pleural effusions . MEDIASTINUM: There is no hilar nor mediastinal adenopathy. Mild circumferential thickening the lower esophagus noted. CARDIAC: Heart size is upper normal. There is no pericardial effusion.Caliber of the thoracic aorta is within normal limits. No evidence of dissection. There is no significant shift of the interventri cular septum. PARTIALLY VISUALIZED UPPERMOST ABDOMEN: No obvious findings OSSEOUS: No significant osseous lesions.. IMPRESSION: 1. No evidence of acute pulmonary emboli. No evidence of pulmonary infarction.No pleural effusions. No lung masses. 2. Mild circumferential thickening of the esophagus is noted, probably element of esophagitis. 3. Incidentally noted is narrowing of the proximal aspects of the celiac and superior mesenteric eldon louisa. RADIATION DOSE DELIVERED: Total DLP DATA REPOSITORY: All CT scans at this facility are submitted to the National Radiology Data Registry (NRDR) Dose Index Registry (DIR) with the [employer] (ACR). RADIATION OPTIMIZATION: All CT scans at this facility use at least one of these dose optimization te chniques: automated exposure control; mA and/or kV adjustment per patient size (includes targeted exa ms where dose is matched to clinical indication); or iterative reconstruction.
--- NOTE | 2023-07-20 03:50 | DI.VRAD_ITS ---
PROCEDURE INFORMATION: Exam: XR Chest Exam date and time: 07/20/2023 2:56 AM Age: 63 years old Clinical indication: Other: Central chest pain TECHNIQUE: Imaging protocol: Radiologic exam of the chest. Views: 1 view. COMPARISON: CR XR PORTABLE CHEST AP 11/20/2022 7:34 PM FINDINGS: Lungs: No focal consolidation seen. Pleural spaces: No large pleural effusion seen. Heart/Mediastinum: No cardiomegaly. Bones/joints: Grossly unremarkable. IMPRESSION: No acute findings to explain reported symptoms. Dictated and Authenticated by: Rowan Cruz MD. Ordering:JOSEF Null MD
[2023-07-20] MEDS: Heparin in 0.45% NaCl 25,000 UNIT/250 ML BAG 9.5 UNIT IV (03:51)
[2023-07-20 03:55] LABS: D-Dimer 750 ng/mlFEU (<500)
[2023-07-20] MEDS: Normal Saline Flush 10 ML SYR IVP (04:06)
[2023-07-20] MEDS: Omnipaque 350 MG/ML 100 ML BTL IJ (04:06)
[2023-07-20] MEDS: Normal Saline - Diluent 50 ML VIAL IJ (04:07)
--- NOTE | 2023-07-20 04:40 | DI.VRAD_ITS ---
PROCEDURE INFORMATION: Exam: CTA Chest With Contrast Exam date and time: 07/20/2023 4:19 AM Age: 63 years old Clinical indication: Pain and abnormal findings; Abnormal diagnostic tests; Elevated d-dimer; Prior surgery; Surgery date: 6+ months; Surgery type: Stent placed; Patient HX: Central chest pain, elevated dimer TECHNIQUE: Imaging protocol: Computed tomographic angiography of the chest with contrast. Exam focused on the arteries. 3D rendering (Not supervised by radiologist): MIP and/or 3D reconstructed images were created by the technologist. Radiation optimization: All CT scans at this facility use at least one of these dose optimization techniques: automated exposure control; mA and/or kV adjustment per patient size (includes targeted exams where dose is matched to clinical indication); or iterative reconstruction. Contrast material: OMNIPAQUE 350; Contrast volume: 70 ml; Contrast route: INTRAVENOUS (IV); COMPARISON: CT CHEST PE CTA 09/20/2019 12:57 PM FINDINGS: Limitations: Mild motion artifact. Pulmonary arteries: No pulmonary embolus is appreciated. Aorta: No thoracic aortic aneurysm seen. 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 Other arteries: Arterial calcifications. Lungs: No focal consolidation seen. Pleural spaces: No pleural effusion. Heart: No pericardial effusion. Coronary arteries: Coronary artery calcifications. Mediastinal space: Mild esophageal thickening. Lymph nodes: No acute abnormality seen. Diaphragm: Small hiatal hernia. Liver: Hepatomegaly. Low attenuation lesions in the liver too small to accurately characterize on CT. Adrenal glands: Adrenal thickening. Stomach and bowel: Low attenuation lesion in the right kidney too small to accurately characterize on CT. Gastric distension. Bones/joints: No acute pertinent abnormality seen. Soft tissues: No acute pertinent abnormality seen. IMPRESSION: 1. No pulmonary embolus is appreciated. 2. Mild esophageal thickening. Consider esophagitis, less likely neoplasm. 3. 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 Dictated and Authenticated by: Rowan Cruz MD. Ordering:JOSEF Null MD
[2023-07-20] MEDS: Metoprolol 25 MG TAB PO (05:28)
[2023-07-20] MEDS: Atorvastatin 40 MG TAB 80 MG PO (05:28)
[2023-07-20] MEDS: Acetaminophen 500 MG TAB 1000 MG PO (05:28)
--- NOTE | 2023-07-20 05:45 | RT.EKG_ITS ---
APPROVED REPORT Exam: Resting ECG Reason for Exam: CHEST PAIN Patient Location: E HR:69 bpm ECG Measurements Heart Rate 69 AXIS PA 131 P 66 QRSd 93 QRS 55 QT 420 T -1 QTc 450 Conclusion Sinus rhythm...normal P axis, V-rate 60- 99 Physician: no stemi, ST depressions have normalized since nitro administration
--- NOTE | 2023-07-20 05:51 | W.PM.HP.N ---
Date of service: 07/20/23 Time of Service: 05:51 Assessment and Plan Assessment and plan (1) Non-ST elevation UT (NSTEMI): Status: Acute Assessment and plan: NSTEMI, though with resolution of EKG changes this may be more of an unstable angina. Regardless will continue ASA, heparin, beta emmie and statin, trend troponins and await transfer for cath. Will leave NPO, give dose Ativan and leave nicotine patch prn. Reviewed ADs, requests Full Code. History of Present Illness History of Present Illness Chief Complaint: CP Narrative: 63 female with h/o NSTEMI 2019, s/p stent RCA. was on DUAP, beta emmie and statin, stopped all after a year nd continues to smoke (1/2 PPD) -- here with CP beginning approx 10 PM last night, radiation to arms and jaw, identical to prior event. No SOPB. Tried taking a shower w/o effect and ultimately came to ER. In ER troponin 280 and EKG shows 1/[address] depression V3-4. Patient given ASA NTG SLx1 and heparinized, with resolution of pain, total duration approx 5 hours. Case reviewed with [facility], accepted for transfer pending bed availability (Dr. Hewitt); advised to NOT give Plavix, but given additionally 25 Lopressor and 80 Lipitor. I was asked to evaluate for admission. At present patient states she is comfortable, though a bit anxious. Repeat EKG shows resolution of previous ST changes. Review of Systems Narrative: per HPI PFSH All Active Problems Non-ST elevation UT (NSTEMI) (Acute) Unstable angina (Acute) Encounter for screening for other viral diseases (Acute) Non-STEMI (non-ST elevated myocardial infarction) (Acute) Women's annual routine gynecological examination (Acute) Medical History Tobacco use disorder Postmenopausal LMP 2011 Surgical History Ligation of fallopian tube (05/03/86) Colposcopy (~1985) For cervical dysplasia Family History Mother , Cervical CA at age 50. Personal history of malignant neoplasm Cervical CA Father No problems noted. Sister No problems noted. Social History Smoking/Tobacco Use Status: Current every day Tobacco Type: cigarettes Smoking packs per day: 0.5 Smoking cigarettes per day: 10.0 Smoking risk assessment performed?: Yes Alcohol Intake: never Substance use type: does not use Do you feel safe at home: Yes Do you feel safe in your relationship?: Yes Meds Allergies and Home Medications Allergies Allergy/AdvReac Type Severity Reaction Status Date / Time No Known Allergies Allergy Verified 07/20/23 03:00 Home Medications Medication Instructions Recorded Confirmed Type aspirin 81 mg tablet,delayed 81 mg PO DAILY 10/25/19 07/20/23 History release atorvastatin 80 mg tablet 80 mg PO DAILY 10/25/19 07/20/23 History clopidogrel 75 mg tablet 75 mg PO DAILY 10/25/19 07/20/23 History metoprolol succinate 25 mg capsule 25 mg PO DAILY 10/25/19 07/20/23 History sprinkle, ext. release 24 hr nitroglycerin 0.4 mg sublingual 0.4 mg sublingual Q5M PRN 10/25/19 07/20/23 History tablet Exam Narrative Exam Narrative: 170/78, 72, 36.1, 15, 94% RA. HEENT atraumatic; neck supple, no JVD; lungs clear; heart RRR w/o MRG; abdomen soft and NT; extremities w/o edema, pulse 2+/=; neuro Ox3, lucid, moves all 4s Results Labs 07/20/23 03:07 07/20/23 03:07 Labs: Laboratory Results - last 24 hr 07/20/23 03:07 WBC 5.46 RBC 4.35 Hgb 13.4 Hct 41.6 MCV 96 H MCH 30.8 MCHC 32.2 RDW 13.2 Plt Count 236 MPV 9.7 Immature Gran % 0.4 Neutrophils % 55.7 Lymphocytes % 31.3 Monocytes % 9.5 Eosinophils % 2.2 Basophils % 0.9 Nucleated RBC % 0.0 Absolute Neutrophils 3.04 Absolute Lymphocytes 1.71 Absolute Monocytes 0.52 Absolute Eosinophils 0.12 Absolute Basophils 0.05 PT 10.3 INR 1.0 APTT 25.0 D-Dimer 750 H Sodium 145 Potassium 3.8 Chloride 107 Carbon Dioxide 30.8 Anion Gap 7.2 BUN 18 Creatinine 0.9 Est GFR (CKD-EPI 2020) 71.39 Glucose 141 H Calcium 9.1 Magnesium 2.0 Total Bilirubin 0.2 AST 18 ALT 29 Alkaline Phosphatase 150 H Troponin I 285 H* Total Protein 7.2 Albumin 3.4 Last Vital Signs Pulse 72 07/20/23 05:23 Resp 15 07/20/23 05:23 BP 170/78 H 07/20/23 05:23 Pulse Ox 94 07/20/23 05:20 Time Spent Time spent with Patient: 55-74 minutes Time was spent: preparing to see the patient(eg.review tests), obtaining and/or reviewing separately otained hiistory, ordering medications,tests, procedures, referring, communicating with other health critical care paramedic and indepentently interpreting results
[2023-07-20] MEDS: LORazepam 0.5 MG TAB PO (06:06)
[2023-07-20 06:42] LABS: Troponin I 1007 ng/L (< or =60)
--- NOTE | 2023-07-20 07:10 | NUR.NOTE ---
Nursing Note: PT denies CP, lung sounds clear. Call light within reach at this time.
[2023-07-20] MEDS: Lactated Ringers 1,000 ML 75 ML IV (07:47)
--- NOTE | 2023-07-20 08:52 | INITIAL_ITS ---
Date of service: 07/20/23 Time of Service: 08:52 Care Management Initial Assmt Initial Assessment REASON FOR HOSPITALIZATION:: NSTEMI PREVIOUS FUNCTIONAL STATUS/SOCIAL/FAMILY SUPPORTS:: Marzena lives alone in an apartment in [facility]. She has 2 children, a son and a daughter. Her son lives in [place] and her daughter lives in [place], [place] 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 She does not receive any community services and does not use any assistive devices for ambulation. CURRENT FUNCTIONAL STATUS:: Marzena was lying in bed in the ICU when CM met with her. She was admitted with an NSTEMI and is waiting for an available bed at [facility]. Marzena had a similar episode about 4 years ago and had a cardiac catheterization with stenting at that time. She shared that she is really hopeful that she can be transferred today. Although Marzena's pain has .resolved, her troponins continue to rise and have gone from 285 this morning at 3 am to 1007 at 6 am and 1847 at 10 am. ADVANCE DIRECTIVES:: none on file Has patient been provided with info about the portal/API?: Yes Did the patient sign up for the portal?: Yes CODE STATUS:: Full Code INSURANCE COVERAGE / FINANCIAL ISSUES:: [employer] CURRENT HOME/COMMUNITY SERVICES/EQUIPMENT:: none PRIMARY CARE PHYSICIAN:: none current Was seeing Ahmet Nash at [facility] but hasn't seen her in 3 years since Ahmet moved to [facility] POTENTIAL DISCHARGE NEEDS:: follow up with community providers and plan of care PATIENT/FAMILY EDUCATION NEEDS:: Review of discharge instructions, activity, limitations, follow up plan, discuss Ask Me Three TRANSPORTATION:: via private vehicle vs EMS PLAN:: Marzena is awaiting transfer to [facility]. She has been accepted by Dr. Hewitt, pending bed availability. She will transport via EMS coordinated by the nursing supervisor waterproofing. CM will follow and continue to assess for discharge needs. PFSH All Active Problems Non-ST elevation PR (NSTEMI) (Acute) Unstable angina (Acute) Encounter for screening for other viral diseases (Acute) Non-STEMI (non-ST elevated myocardial infarction) (Acute) Women's annual routine gynecological examination (Acute) Medical History Tobacco use disorder Postmenopausal LMP 2011 Surgical History Ligation of fallopian tube (05/03/86) Colposcopy (~1985) For cervical dysplasia Family History Mother , Cervical CA at age 50. Personal history of malignant neoplasm Cervical CA Father No problems noted. Sister No problems noted. Social History Smoking/Tobacco Use Status: Current every day Tobacco Type: cigarettes Smoking packs per day: 0.5 Smoking cigarettes per day: 10.0 Smoking risk assessment performed?: Yes Alcohol Intake: never Substance use type: does not use Do you feel safe at home: Yes Do you feel safe in your relationship?: Yes SDOH(Care Management) Screening Will the Patient Participate in the Screening?: Yes Do you worry about having a steady place to live?: no In the past 12 months, have you had to go without electric, gas, oil or water in your home?: no Have you or anyone in your house had to go without enough food to eat?: no Has lack of transportation kept you from medical appointments or from doing things needed for daily living?: no Has anyone in your support network made you feel unsafe for any reason?: no
[2023-07-20 10:29] LABS: PTT Activated 71.9 sec (23.6-32.8)
[2023-07-20 10:32] LABS: Troponin I 1847 ng/L (< or =60)
--- NOTE | 2023-07-20 11:00 | RT.EKG_ITS ---
APPROVED REPORT Exam: Resting ECG Reason for Exam: NSTEMI Patient Location: I HR:57 bpm ECG Measurements Heart Rate 57 AXIS ME 126 P 73 QRSd 96 QRS 65 QT 451 T 29 QTc 440 Conclusion Sinus rhythm...normal P axis, V-rate 50- 99 Normal Electrocardiogram
--- NOTE | 2023-07-20 12:35 | PHACLINREV_ITS ---
Pharmacy Admission Review Admission Clinical Review Admission Pharmacy Review: Non-ST elevation AL (NSTEMI) (Acute) No Known Allergies Allergy (Verified 07/20/23 03:00) Resuscitation Status Full Code Height 5 ft 3 in Weight 76.7 kg Comments Comments/Follow Ups: Per morning meeting, patient was accepted at [facility] [place] for catherization and will be transferred at some point today Pharmacy Admission Review Renal Dosing Renal Dosing: BUN 18 mg/dL (7-18) 07/20/23 03:07 Creatinine 0.9 mg/dL (0.55-1.02) 07/20/23 03:07 Medications needing adjustments: Reviewed (CrCl 55.73 mL/min) Anticoagulation Anticoagulation: Hgb 13.4 g/dL (11.2-15.7) 07/20/23 03:07 Hct 41.6 % (36.0-46.0) 07/20/23 03:07 Plt Count 236 10^3/uL (130-400) 07/20/23 03:07 INR 1.0 (0.9-1.1) 07/20/23 03:07 Creatinine 0.9 mg/dL (0.55-1.02) 07/20/23 03:07 Therapeutic Anticoagulation: Reviewed Medications: Heparin (Infusion) Relevant Labs Relevant Labs: Sodium 145 mmol/L (136-145) 07/20/23 03:07 Potassium 3.8 mmol/L (3.5-5.1) 07/20/23 03:07 Chloride 107 mmol/L (98-107) 07/20/23 03:07 Magnesium 2.0 mg/dL (1.8-2.4) 07/20/23 03:07 Electrolytes, C-Reactive P, ESR: Reviewed (Glucose 141) Cardiac Review Cardiac Review: Troponin I 1847 ng/L (< or =60) H* 07/20/23 10:00 BP, HR, EF%: Reviewed (BP WNL, HR 53, troponin was 1007 at 0600 this morning and increased to 1847 at 1000) QTc Review QTc: Reviewed (440 from 07/20/23) IV to PO Switch IV Medications: Reviewed Home Meds Home Med List reviewed: Reviewed Relevent Home Meds Not ordered & why?: Patient reports that she stopped taking all of her medications (per H+P) Current Meds Current Medication Order Review: Reviewed Comments Comments/Follow Ups: Per morning meeting, patient was accepted at [facility] [place] for catherization and will be transferred at some point today
--- NOTE | 2023-07-20 12:56 | DSE_ITS ---
Date of service: 07/20/23 Time of Service: 13:02 DS: Diagnosis Discharge Diagnosis (1) Non-ST elevation ND (NSTEMI): Status: Acute Asessment and Plan: - Patient presented with substernal chest pain, elevated troponin and EKG changes suggestive of NSTEMI -Case was discussed with [facility] cardiology who recommended initiation of loading dose of aspirin, heparin drip, statin and beta-emmie -During short hospitalization in [facility] [place] [place] patient did not have recurrence of chest pain -Patient was ultimately transferred to [facility] for left heart catheterization Discharge Plan Disposition Patient Disposition: Transfer-Acute Inpatient Care Specific Acute Inpt Facility: [facility] Condition: Good Discharge Details Reason For Visit: NSTEMI Admit Date/Time: 07/20/23 06:06 Admit Provider: Elbert Peck Attending Provider: Elbert Peck Primary Care Provider: Unknown,Unknown Hospital Course Hospital Course: Patient presented with substernal chest pain elevated troponin and EKG changes suggestive of NSTEMI. Patient was loaded with aspirin, given beta-emmie, statin heparin drip. During brief hospitalization at [facility] she did not experience any episodes of chest pain and was ultimately transferred to [facility] for left heart catheterization. Home Meds and New Rx's Prescriptions: No Action metoprolol succinate 25 mg capsule,sprinkle,ER 24hr 25 mg PO DAILY aspirin 81 mg tablet,delayed release (DR/EC) 81 mg PO DAILY atorvastatin 80 mg tablet 80 mg PO DAILY clopidogrel 75 mg tablet 75 mg PO DAILY nitroglycerin 0.4 mg tablet, sublingual 0.4 mg SL Q5M PRN Rx Instructions: do not exceed 3 doses per episode Discharge Instructions Activity:: Activity as Tolerated Equipment/Supplies:: No Equipment Needed Diet:: As Tolerated Discharge Orders Discharge Orders: Discharge Order (Routine); Ordered 07/20/23 Ordered By: Mir Jc DS: Summary Time Spent with Patient providing and/or coordinating discharge services: Greater than 30 minutes Status at Discharge Functional status at discharge: independent ambulation Overall status at discharge: patient is back to baseline Mental Status: mental status grossly normal Speech and Movement: speech and movement normal Mood: congruent mood Affect: normal affect Quality:SDOH Health Related Social Needs: No Data to Display Exam Narrative Exam Narrative: Well-appearing older female laying in bed in no acute distress, ANO x 4, heart regular rate rhythm, lungs clear to auscultation bilaterally, abdomen soft, nontender, nondistended Psych Mental Status: mental status grossly normal Speech and Movement: speech and movement normal Mood: congruent mood Affect: normal affect DS: Data Vitals/I&O Vitals and I&O: Vital Signs Temperature 99.5 F 07/20/23 07:50 Temperature Source Temporal Artery Scan 07/20/23 07:50 Pulse 53 L 07/20/23 12:02 Pulse 55 L 07/20/23 12:02 Respiratory Rate 14 07/20/23 12:02 Respiratory Effort Normal, Non-Labored 07/20/23 07:50 Respiratory Depth Normal 07/20/23 07:50 Respiratory Pattern Normal 07/20/23 07:50 Blood Pressure 138/69 07/20/23 12:02 Blood Pressure Mean 86 07/20/23 12:02 Blood Pressure Position Supine 07/20/23 07:50 Pulse Oximetry 92 07/20/23 12:02 Oxygen Delivery Method Room Air 07/20/23 07:50 Oxygen Flow Rate 0 07/20/23 07:50 Pain Level 0 07/20/23 07:50 Intake & Output 07/19/23 07/20/23 07/20/23 17:59 05:59 17:59 Intake Total 66.183 / 66.183 Balance 66.183 / 66.183 Weight 173 lb 11.588 oz 169 lb 1.513 oz Intake: IV 66.183 / 66.183 Data Completed and Pending Labs on day of discharge: Labs from last 24 hours 07/20/23 07/20/23 07/20/23 16:00 10:00 06:00 WBC RBC Hgb Hct MCV MCH MCHC RDW Plt Count MPV Immature Gran % Neutrophils % Lymphocytes % Monocytes % Eosinophils % Basophils % Nucleated RBC % Absolute Neutrophils Absolute Lymphocytes Absolute Monocytes Absolute Eosinophils Absolute Basophils PT INR APTT Pending 71.9 H D-Dimer Sodium Potassium Chloride Carbon Dioxide Anion Gap BUN Creatinine Est GFR (CKD-EPI 2020) Glucose Calcium Magnesium Total Bilirubin AST ALT Alkaline Phosphatase Troponin I 1847 H* 1007 H* Total Protein Albumin 07/20/23 03:07 WBC 5.46 RBC 4.35 Hgb 13.4 Hct 41.6 MCV 96 H MCH 30.8 MCHC 32.2 RDW 13.2 Plt Count 236 MPV 9.7 Immature Gran % 0.4 Neutrophils % 55.7 Lymphocytes % 31.3 Monocytes % 9.5 Eosinophils % 2.2 Basophils % 0.9 Nucleated RBC % 0.0 Absolute Neutrophils 3.04 Absolute Lymphocytes 1.71 Absolute Monocytes 0.52 Absolute Eosinophils 0.12 Absolute Basophils 0.05 PT 10.3 INR 1.0 APTT 25.0 D-Dimer 750 H Sodium 145 Potassium 3.8 Chloride 107 Carbon Dioxide 30.8 Anion Gap 7.2 BUN 18 Creatinine 0.9 Est GFR (CKD-EPI 2020) 71.39 Glucose 141 H Calcium 9.1 Magnesium 2.0 Total Bilirubin 0.2 AST 18 ALT 29 Alkaline Phosphatase 150 H Troponin I 285 H* Total Protein 7.2 Albumin 3.4 PFSH All Active Problems Non-ST elevation ND (NSTEMI) (Acute) Unstable angina (Acute) Encounter for screening for other viral diseases (Acute) Non-STEMI (non-ST elevated myocardial infarction) (Acute) Women's annual routine gynecological examination (Acute) Medical History Tobacco use disorder Postmenopausal LMP 2011 Surgical History Ligation of fallopian tube (05/03/86) Colposcopy (~1985) For cervical dysplasia Family History Mother , Cervical CA at age 50. Personal history of malignant neoplasm Cervical CA Father No problems noted. Sister No problems noted. Social History Smoking/Tobacco Use Status: Current every day Tobacco Type: cigarettes Smoking packs per day: 0.5 Smoking cigarettes per day: 10.0 Smoking risk assessment performed?: Yes Alcohol Intake: never Substance use type: does not use Do you feel safe at home: Yes Do you feel safe in your relationship?: Yes Time Spent with Patient Time Spent with Patient: <45 minutes Time was spent: preparing to see the patient(eg.review tests), obtaining and/or reviewing separately otained hiistory, ordering medications,tests, procedures, referring, communicating with other health infant caregiver, indepentently interpreting results, counseling the patient and care coordination
[2023-07-20] MEDS: Acetaminophen 325 MG TAB 650 MG PO (13:16)
--- NOTE | 2023-07-20 17:59 | CHAPLAIN ---
I visited Marzena this morning before she was transferred to [facility]. Her boyfriend was with her. She appreciated the prayer rommel. 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 She has had cardiac issues before and been to [facility] for those. She's very much looking forward to her sister's visit t his summer and her sister is a strong support for her.
== END 2023-07-20 14:20 | disposition short-term general hospital (02) ==
LOC: ER 06:28 → ICU 07:17
PROVIDERS: Family Medicine; Admitting Provider General Practice; Emergency Provider Student in an Organized Health Care Education/Training Program; Visit Provider General Practice
DX: I21.4 Non-ST elevation (NSTEMI) myocardial infarction (principal); Z79.899 Other long term (current) drug therapy; Z79.82 Long term (current) use of aspirin; F17.210 Nicotine dependence, cigarettes, uncomplicated; I25.2 Old myocardial infarction; Z95.5 Presence of coronary angioplasty implant and graft; I10 Essential (primary) hypertension; E78.00 Pure hypercholesterolemia, unspecified; F12.90 Cannabis use, unspecified, uncomplicated
CPT/HCPCS: 00123; 36415; 71275; 80053; 93005; 93308; 96365; 96366; 99291; 71045; 83735; 84484; 85025; 85379; 85610; 85730; 93010; 99235; J1644; J3490

== ENCOUNTER 2023-07-30 15:34 | Outpatient (RCR) | payer OTHER, SELFPAY | END 2023-08-02 23:59 | disposition home or self-care (01) | LOC: CR 15:34 | PROVIDERS: Visit Provider Internal Medicine Cardiovascular Disease ==

== ENCOUNTER 2023-08-17 08:29 | Outpatient (CLI) | payer OTHER, SELFPAY ==
--- NOTE | 2023-08-17 08:15 | RT.EKG_ITS ---
APPROVED REPORT Exam: Resting ECG Reason for Exam: TX Patient Location: O HR:70 bpm ECG Measurements Heart Rate 70 AXIS CO 113 P 44 QRSd 94 QRS 33 QT 385 T -28 QTc 416 Conclusion Sinus rhythm...normal P axis, V-rate 50- 99 Borderline T abnormalities, inferior leads...T flat/neg, II III aVF Baseline wander in lead(s) V4
== END 2023-08-17 08:30 | disposition home or self-care (01) ==
LOC: DI.CARD 08:29
PROVIDERS: Visit Provider Internal Medicine Cardiovascular Disease
DX: I21.4 Non-ST elevation (NSTEMI) myocardial infarction (principal)
CPT/HCPCS: 93010

== ENCOUNTER 2024-02-22 18:39 | Outpatient (REF) | payer OTHER, SELFPAY ==
[2024-02-22 21:24] LABS: ALT 34 U/L (14-59); AST 20 U/L (15-37); Albumin 3.9 g/dL (3.4-5.0); Alkaline Phosphatase 173 U/L (46-116); Anion Gap 11.5 mmol/L (3-11); BUN 26 mg/dL (7-18); Bilirubin, Total 0.18 mg/dL (0.2-1.0); CO2 26.5 mmol/L (21.0-32.0); CREATININE 0.7 mg/dL (0.55-1.02); Calcium 9.3 mg/dL (8.5-10.1); Calculated LDL 81 mg/dL (<100); Chloride 109 mmol/L (98-107); Cholesterol 173 mg/dL (<200); Estimated GFR 96.52 (mL/min/1.73m2); Glucose 99 mg/dL (74-106); HDL Cholesterol 84 mg/dL (40-60); Potassium 4.3 mmol/L (3.5-5.1); Sodium 147 mmol/L (136-145); Total Protein 7.3 g/dL (6.4-8.2); Triglyceride 40 mg/dL (<150)
[2024-02-23 19:28] LABS: HIV-1/2 Ag & Ab Screen Negative (Negative)
[2024-02-23 19:33] LABS: Hepatitis C Ab w Rflx HCV PCR Negative (Negative)
== END 2024-02-22 18:40 | disposition home or self-care (01) ==
LOC: LBN 18:39
PROVIDERS: PCP Nurse Practitioner Family; Visit Provider Nurse Practitioner Family
DX: E78.5 Hyperlipidemia, unspecified (principal); Z11.59 Encounter for screening for other viral diseases; Z11.4 Encounter for screening for human immunodeficiency virus [HIV]; Z01.30 Encounter for examination of blood pressure without abnormal findings
CPT/HCPCS: 80053; 80061; 86803; 87389

== ENCOUNTER 2024-11-01 01:47 | Outpatient (CLI) | payer MEDICARE, SELFPAY ==
--- NOTE | 2024-11-01 06:30 | DI.MAMMO_ITS ---
Exam(s) MAMMO SCREENING EXAM: MAMMO SCREENING CLINICAL HISTORY: screening,Z12.39 TECHNIQUE: Mammograms were interpreted according to the usual protocol including computer analysis with CAD system, tomosynthesis and C-view imaging. COMPARISON: 2015 and 2018 FINDINGS: The breasts are composed of scattered fibroglandular densities, Breast Density category B. No suspicious masses or suspicious microcalcifications are seen. No skin thickening or abnormal axillary lymph nodes are seen. There has been no significant change from prior exams. IMPRESSION: BI-RADS Category 1, Negative mammogram Yearly screening mammography is recommended. Breast Density - Category B - There are scattered areas of fibroglandular density. Breast density Category C or D implies that the patient has dense breast tissue. Dense breast tissue can make it harder to find cancer on a mammogram. Dense breast tissue is also associated with an increased risk of breast cancer. This information about the result of the mammogram report was provided to the patient to raise their awareness. Use this report when you speak with the patient about their risks for breast cancer, which includes their family history. At that time, you may recommend additional screening tests (Ultrasound or MRI) as these tests may add significant information. A negative radiographic report should not delay biopsy if a dominant or clinically suspicious mass is present. Up to ten percent of cancers are not identified on mammography. A negative report may reinforce clinical impression. Adenosis and dense breasts may obscure an underlying neoplasm. False positive reports average 6 to 10%. Patient will receive a letter notifying them of these results.
== END 2024-11-01 02:07 ==
PROVIDERS: PCP Nurse Practitioner Family; Visit Provider Nurse Practitioner Family
DX: Z12.31 Encounter for screening mammogram for malignant neoplasm of breast (principal); R92.323 Mammographic fibroglandular density, bilateral breasts
CPT/HCPCS: 77063; 77067

== ENCOUNTER 2025-04-13 15:55 | Emergency (ER) | payer MEDICARE, SELFPAY ==
[2025-04-13] VITALS (30 sets, daily range): BP systolic 131–158; BP diastolic 59–84; PULSE 70–98; RESP 13–24; TEMP 36.6; O2SAT 91–98
--- NOTE | 2025-04-13 16:00 | RT.EKG_ITS ---
APPROVED REPORT Exam: Resting ECG Reason for Exam: dizzy Patient Location: E HR:85 bpm ECG Measurements Heart Rate 85 AXIS VA 122 P 71 QRSd 90 QRS 47 QT 386 T 38 QTc 459 Conclusion Sinus rhythm...normal P axis, V-rate 60- 99 No STEMI
--- NOTE | 2025-04-13 16:15 | DI.RAD_ITS ---
Exam(s) XR PORTABLE CHEST AP EXAM: XR PORTABLE CHEST AP CLINICAL HISTORY: fever, chills. TECHNIQUE: 2D digital imaging was performed. COMPARISON: CR,XR XR PORTABLE CHEST AP from 07/20/2023 FINDINGS: Single AP portable view. Heart size is upper normal. The mediastinum is not widened. Lungs are clear. No infiltrates nor obvious pleural effusions. IMPRESSION: No acute pulmonary findings on this single AP portable view of the chest. DATA REPOSITORY: RADIATION DOSE DELIVERED:
[2025-04-13 17:14] LABS: Abs Immature Grans 0.02 10^3/uL (0.0-0.06); HCT 43.4 % (36.0-46.0); HGB 14.5 g/dL (11.2-15.7); Immature Grans % 0.5 %; MCH 30.1 pg (27.0-33.0); MCHC 33.4 % (32.0-36.0); MCV 90 fL (80-95); MPV 9.5 fL (8.0-11.0); Platelet Count 179 10^3/uL (130-400); RBC 4.81 10^6/uL (3.93-5.22); RDW 12.8 % (11.7-14.6); RDW-SD 42.9 fL; WBC 3.88 10^3/uL (4.4-10.8)
[2025-04-13 17:19] LABS: ESR 33 mm/hr (0-30)
[2025-04-13 17:30] LABS: COVID-19 PCR Negative (Negative); RSV PCR Negative (Negative)
[2025-04-13 17:32] LABS: C-Reactive Protein 0.78 mg/dL (<=0.50); Magnesium 1.7 mg/dL (1.6-2.6)
[2025-04-13 17:33] LABS: Troponin I 6 ng/L (<35)
[2025-04-13 17:35] LABS: ALT 28 U/L (10-49); AST 33 U/L (<34); Albumin 4.4 g/dL (3.2-5.0); Alkaline Phosphatase 107 U/L (46-116); Anion Gap 10.8 mmol/L (3-11); BUN 15 mg/dL (9-23); Bilirubin, Total 0.4 mg/dL (0.2-1.2); CO2 23.2 mmol/L (20.0-31.0); Calcium 9.1 mg/dL (8.3-10.6); Chloride 105 mmol/L (98-107); Glucose 75 mg/dL (74-106); Potassium 3.8 mmol/L (3.5-5.1); Sodium 139 mmol/L (136-145); Total Protein 7.7 g/dL (5.7-8.2)
[2025-04-13] MEDS: ACETAMINOPHEN 500 MG/50 ML BAG 200 MG IVPB (17:49)
[2025-04-13] MEDS: Normal Saline 1,000 ML 1000 ML IV (17:50)
[2025-04-13] MEDS: LORazepam 2 MG/ML VIAL 1 MG IVP (17:51)
[2025-04-13 18:18] LABS: Procalcitonin < 0.10 ng/mL
[2025-04-13 18:48] LABS: Troponin I 4 ng/L (<35)
[2025-04-13] MEDS: Dexamethasone 4 MG/ML VIAL IVP (19:09)
[2025-04-13 20:08] LABS: Glucose Negative (Negative)
[2025-04-13] MEDS: diazePAM 10 MG/2 ML SYR 2.5 MG IVP (20:16)
[2025-04-13 20:30] LABS: C & S Indicated? No; RBC 0-2 HPF (0-2)
[2025-04-13] MEDS: diazePAM 5 MG TAB PO (21:10)
--- NOTE | 2025-04-13 22:08 | W.ED.GENAD ---
Discharge Plan Disposition Patient Disposition: Home Discharge Details Clinical Impression: Acute viral syndrome, Myalgia Primary Care Provider: Ahmet Vides ED Provider: Liz Amaya Home Meds and New Rx's Prescriptions: New diazepam [Valium] 5 mg tablet 2.5 - 5 mg PO BID PRNQty: 8 0RF dexamethasone 4 mg tablet 4 mg PO DAILY Qty: 3 0RF Continued aspirin 81 mg tablet,delayed release (DR/EC) 81 mg PO DAILY nitroglycerin 0.4 mg tablet, sublingual 0.4 mg SL Q5M PRN (Reason: chest pain) Qty: 20 0RF Rx Instructions: do not exceed 3 doses per episode Zepbound 2.5 mg/0.5 mL pen injector 2.5 mg subcut QWEEK Qty: 2 0RF Rx Instructions: for 4 weeks nicotine [Nicoderm CQ] 14 mg/24 hr patch 24 hour 1 patch transdermal ONCE Qty: 28 4RF prasugrel HCl 10 mg tablet 10 mg PO DAILY Qty: 90 4RF atorvastatin 40 mg tablet 40 mg PO DAILY Qty: 90 4RF losartan 25 mg tablet 25 mg PO DAILY Qty: 90 4RF metoprolol succinate 25 mg tablet extended release 24 hr 25 mg PO QDAY Qty: 90 4RF Discharge Instructions Additional Instructions: Continue to take Tylenol every 6 hours milligrams, do not exceed 3 g of Tylenol daily You may take the Valium as needed for muscle pain, 2.5 mg to 5 mg every 8 hours You may apply heat pack over the area of tenderness Even if you do not feel like having food, you could try [place] instant breakfast, Jell-O, and soup for calories If you fever, persistent back, or should any new concerns arise, please return for reassessment Stand Alone Forms: Portal Information, Work Release Referrals: Ahmet Vides, CHRISTINE [Primary Care Provider, Medicine] HPI General Date/Time Provider Initiated Documentation: 04/13/25 16:00. HPI Narrative: This 64-year-old female presents with subjective fever, myalgias, back pain, cough upper respiratory congestion, lightheadedness and weakness for the past 4 days. She denies any chest pain or shortness of breath. She denies any nausea or vomiting. Denies any diarrhea. Denies any tick bites denies headache currently or stiff neck. States that she has not had much to eat in the past 4 days as her kitchen is upstairs and her bedroom is downstairs and she is felt quite weak. She has been drinking fluids. Has been taking Motrin and Tylenol for pain control. States that pain is around her coccyx denies any urinary symptoms. Denies any rashes or lesions. Patient states she has some slight right hip pain, but states she strained it 2 days ago trying to stand up and twisting it. Related Data Home Medications ?Medication ?Instructions ?Recorded ?Confirmed aspirin 81 mg tablet,delayed 81 mg PO DAILY 10/25/19 09/09/24 release nicotine 14 mg/24 hr daily 1 patch transdermal ONCE #28 ea 02/22/24 09/09/24 transdermal patch (Nicoderm CQ) prasugrel HCl 10 mg tablet 10 mg PO DAILY #90 tabs 08/17/24 09/09/24 nitroglycerin 0.4 mg sublingual 0.4 mg sublingual Q5M PRN chest 09/09/24 09/09/24 tablet pain #20 tabs tirzepatide (weight loss) 2.5 2.5 mg (0.5 mL) subcut QWEEK #2 mL 09/09/24 09/09/24 mg/0.5 mL subcutaneous pen injector (Zepbound) atorvastatin 40 mg tablet 40 mg PO DAILY #90 tabs 10/11/24 losartan 25 mg tablet 25 mg PO DAILY #90 tabs 10/11/24 metoprolol succinate 25 mg 25 mg PO QDAY #90 tabs 10/11/24 tablet,extended release 24 hr dexamethasone 4 mg tablet 4 mg PO DAILY #3 tabs 04/13/25 diazepam 5 mg tablet (Valium) 2.5 - 5 mg (0.5 - 1 x 5 mg) PO BID 04/13/25 PRN #8 tabs Previous Rx's ?Medication ?Instructions ?Recorded nicotine 14 mg/24 hr daily 1 patch transdermal ONCE #28 ea 02/22/24 transdermal patch (Nicoderm CQ) prasugrel HCl 10 mg tablet 10 mg PO DAILY #90 tabs 08/17/24 nitroglycerin 0.4 mg sublingual 0.4 mg sublingual Q5M PRN chest 09/09/24 tablet pain #20 tabs tirzepatide (weight loss) 2.5 2.5 mg (0.5 mL) subcut QWEEK #2 mL 09/09/24 mg/0.5 mL subcutaneous pen injector (Zepbound) atorvastatin 40 mg tablet 40 mg PO DAILY #90 tabs 10/11/24 losartan 25 mg tablet 25 mg PO DAILY #90 tabs 10/11/24 metoprolol succinate 25 mg 25 mg PO QDAY #90 tabs 10/11/24 tablet,extended release 24 hr dexamethasone 4 mg tablet 4 mg PO DAILY #3 tabs 04/13/25 diazepam 5 mg tablet (Valium) 2.5 - 5 mg (0.5 - 1 x 5 mg) PO BID 04/13/25 PRN #8 tabs Allergies Allergy/AdvReac Type Severity Reaction Status Date / Time No Known Allergies Allergy Verified 04/13/25 16:05 General Stated Complaint: GenMedical YVES: 3 Exam Narrative Exam Narrative: Alert and oriented 64-year-old female pale, oropharynx patent uvula midline pupils equal round reactive to light and accommodation lungs clear to auscultation cardiac rate rhythm regular no abdominal tenderness no real tenderness with palpation over cervical, thoracic, or lumbar spine, no meningismus, alert and oriented x 4 answering questions appropriately no peripheral edema or tenderness, some mild tenderness to right hip Course Vital Signs Vital signs: Vital Signs Temperature 36.6 C 04/13/25 15:59 Pulse 98 H 04/13/25 15:59 Respiratory Rate 18 04/13/25 15:59 Blood Pressure 131/84 04/13/25 15:59 Pulse Oximetry 98 04/13/25 15:59 Temperature 36.6 C 04/13/25 16:05 Pulse 79 04/13/25 21:16 Pulse 78 04/13/25 21:10 Respiratory Rate 18 04/13/25 21:16 Respiratory Effort Normal 04/13/25 16:17 Respiratory Depth Normal 04/13/25 16:17 Respiratory Pattern Normal 04/13/25 16:17 Blood Pressure 140/82 04/13/25 21:16 Blood Pressure Mean 89 04/13/25 20:46 Pulse Oximetry 93 04/13/25 21:16 Pain Level 5 04/13/25 17:51 Lab/Test Results Lab/Test Results: 04/13/25 19:43 Urine - Clean Catch Urine Culture - Pending 04/13/25 17:20 Blood Blood Culture - Pending 04/13/25 17:01 Blood Blood Culture - Pending Laboratory Tests Range/Units 04/13/25 04/13/25 04/13/25 16:16 17:01 18:16 WBC (4.4-10.8) 10^3/uL 3.88 L RBC (3.93-5.22) 10^6/uL 4.81 Hgb (11.2-15.7) g/dL 14.5 Hct (36.0-46.0) % 43.4 MCV (80-95) fL 90 MCH (27.0-33.0) pg 30.1 MCHC (32.0-36.0) % 33.4 RDW (11.7-14.6) % 12.8 Plt Count (130-400) 10^3/uL 179 MPV (8.0-11.0) fL 9.5 Immature Gran % % 0.5 Neutrophils % % 52.8 Lymphocytes % % 36.1 Monocytes % % 10.1 Eosinophils % % 0.0 Basophils % % 0.5 Nucleated RBC % (0.0-0.3) % 0.0 Absolute Neutrophils (1.2-6.7) 10^3/uL 2.05 Absolute Lymphocytes (1.2-3.4) 10^3/uL 1.40 Absolute Monocytes (0.1-0.8) 10^3/uL 0.39 Absolute Eosinophils (0.0-0.7) 10^3/uL 0.00 Absolute Basophils (0.0-0.2) 10^3/uL 0.02 ESR (0-30) mm/hr 33 H VBG Lactate (<or=2.0) mmol/L 1.4 Sodium (136-145) mmol/L 139 Potassium (3.5-5.1) mmol/L 3.8 Chloride (98-107) mmol/L 105 Carbon Dioxide (20.0-31.0) mmol/L 23.2 Anion Gap (3-11) mmol/L 10.8 BUN (9-23) mg/dL 15 Creatinine (0.55-1.02) mg/dL 0.73 Est GFR (CKD-EPI 2020) (mL/min/1.73m2) 79.82 Glucose (74-106) mg/dL 75 Calcium (8.3-10.6) mg/dL 9.1 Magnesium (1.6-2.6) mg/dL 1.7 Total Bilirubin (0.2-1.2) mg/dL 0.4 AST (<34) U/L 33 ALT (10-49) U/L 28 Alkaline Phosphatase (46-116) U/L 107 Troponin I (<35) ng/L 6 4 C-Reactive Protein (<=0.50) mg/dL 0.78 H Total Protein (5.7-8.2) g/dL 7.7 Albumin (3.2-5.0) g/dL 4.4 Procalcitonin ng/mL < 0.10 Urine Color (Yellow) Urine Clarity (Clear) Urine pH (5-8) Ur Specific [place] (1.005-1.025) Urine Protein (Neg-Trace) mg/dL Urine Ketones (Negative) mg/dL Urine Blood (Negative) Urine Nitrite (Negative) Urine Bilirubin (Negative) Urine Urobilinogen (Up to 0.2) mg/dL Ur Leukocyte Esterase (Negative) Urine RBC (0-2) HPF Urine WBC (0-5) HPF Ur Epithelial Cells (Negative) HPF Urine Crystals (Negative) HPF Urine Bacteria (Negative) HPF Urine Casts (Negative) LPF Urine Mucus (Negative) Ur Culture Indicated? Urine Glucose (Negative) mg/dL COVID-19 Source Nasopharynx SARS-CoV-2 (PCR) (Negative) Negative Influenza Type A (PCR) (Negative) Negative Influenza Type B (PCR) (Negative) Negative RSV (PCR) (Negative) Negative Range/Units 04/13/25 19:43 WBC (4.4-10.8) 10^3/uL RBC (3.93-5.22) 10^6/uL Hgb (11.2-15.7) g/dL Hct (36.0-46.0) % MCV (80-95) fL MCH (27.0-33.0) pg MCHC (32.0-36.0) % RDW (11.7-14.6) % Plt Count (130-400) 10^3/uL MPV (8.0-11.0) fL Immature Gran % % Neutrophils % % Lymphocytes % % Monocytes % % Eosinophils % % Basophils % % Nucleated RBC % (0.0-0.3) % Absolute Neutrophils (1.2-6.7) 10^3/uL Absolute Lymphocytes (1.2-3.4) 10^3/uL Absolute Monocytes (0.1-0.8) 10^3/uL Absolute Eosinophils (0.0-0.7) 10^3/uL Absolute Basophils (0.0-0.2) 10^3/uL ESR (0-30) mm/hr VBG Lactate (<or=2.0) mmol/L Sodium (136-145) mmol/L Potassium (3.5-5.1) mmol/L Chloride (98-107) mmol/L Carbon Dioxide (20.0-31.0) mmol/L Anion Gap (3-11) mmol/L BUN (9-23) mg/dL Creatinine (0.55-1.02) mg/dL Est GFR (CKD-EPI 2020) (mL/min/1.73m2) Glucose (74-106) mg/dL Calcium (8.3-10.6) mg/dL Magnesium (1.6-2.6) mg/dL Total Bilirubin (0.2-1.2) mg/dL AST (<34) U/L ALT (10-49) U/L Alkaline Phosphatase (46-116) U/L Troponin I (<35) ng/L C-Reactive Protein (<=0.50) mg/dL Total Protein (5.7-8.2) g/dL Albumin (3.2-5.0) g/dL Procalcitonin ng/mL Urine Color (Yellow) Yellow Urine Clarity (Clear) Clear Urine pH (5-8) 5.5 Ur Specific [place] (1.005-1.025) 1.025 Urine Protein (Neg-Trace) mg/dL 30 H Urine Ketones (Negative) mg/dL 80 H Urine Blood (Negative) Small H Urine Nitrite (Negative) Negative Urine Bilirubin (Negative) Moderate H Urine Urobilinogen (Up to 0.2) mg/dL 0.2 Ur Leukocyte Esterase (Negative) Negative Urine RBC (0-2) HPF 0-2 Urine WBC (0-5) HPF 3-5 Ur Epithelial Cells (Negative) HPF Moderate Urine Crystals (Negative) HPF Moderate Amorphous Urine Bacteria (Negative) HPF Many Urine Casts (Negative) LPF 5-10 Hyaline Urine Mucus (Negative) Negative Ur Culture Indicated? No Urine Glucose (Negative) mg/dL Negative COVID-19 Source SARS-CoV-2 (PCR) (Negative) Influenza Type A (PCR) (Negative) Influenza Type B (PCR) (Negative) RSV (PCR) (Negative) Medical Decision Making Results: Chest x-ray per radiology interpretation my review does not show acute abnormality white blood cell count slightly low at 3.8 sed rate of 33 lactate 1.4 chemistry does not show acute abnormality urinalysis shows ketones. Assessment and plan: Patient presenting with weakness, anorexia, cough and back pain. Diagnostic evaluation is actually fairly benign including lactate. EKG is nonischemic and troponins are 6 followed by 4 which is reassuring. Flu COVID and RSV are negative, suspect this is a viral syndrome. Patient feeling improvement after Ativan and Valium administration for pain, IV Tylenol, fluids, and able to tolerate a meal in the emergency department. She will need continued rest and hydration at home. Blood cultures are pending. Work note was supplied and will need close outpatient follow-up with PCP. Time of discharge patient reports marked improvement of symptoms and given the threshold to return should she have new or worsening complaints. I did send urine for culture although I have very low suspicion for UTI as she is leukocyte esterase and nitrate negative. We talked about CT abdomen pelvis and lumbar spine imaging however secondary to financial constraints, patient would like to hold on any additional imaging at this time engaged in supportive care. I did give several tabs of Valium after discussing risk of addiction to assist with pain at home. We also talked about taking Tylenol instead of Motrin secondary to Effient use. PFSH All Active Problems (Updated 04/13/25 @ 20:53 by SHEILA Dockery) Myalgia (Acute) Acute viral syndrome (Acute) Coronary artery disease (Chronic) Tobacco use disorder (Acute 03/18/12) 1/2 PPD HLD (hyperlipidemia) (Acute) Non-ST elevation [place] (NSTEMI) (Acute) Women's annual routine gynecological examination (Acute) Medical History Non-STEMI (non-ST elevated myocardial infarction) Establishing care with new doctor, encounter for Encounter for screening for other viral diseases Unstable angina Tobacco use disorder Postmenopausal LMP 2012 Surgical History Ligation of fallopian tube (05/03/86) Colposcopy (~1985) For cervical dysplasia Family History Mother , Cervical CA at age 50. Personal history of malignant neoplasm Cervical CA Father No problems noted. Sister No problems noted. 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 Sexually active: Yes Current gender identity: female What is your relationship status?: How often do you talk on the phone with friends or family?: three or more times per week How often do you get together with friends or relatives?: three or more times per week Do you belong to any clubs or organized social groups?: no Panel score (0-1 are the most socially isolated patients): 1 Duration: < 15 minutes/day Special fidelia needs: No Seatbelt use: always Drive intox or ride w/intox service parts driver: No Firearms in home: No Do you feel safe at home: Yes Do you feel safe in your relationship?: Yes Would you like helpful sources: No
[2025-04-17 11:23] LABS: Lyme Ab w Rflx to Lyme Confirm Negative (Negative)
[2025-04-17 13:22] LABS: B. miyamotoi PCR Negative (Negative); Babesia divergens/MO-1 Negative (Negative); Ehrlichia muris eauclairensis Negative (Negative)
== END 2025-04-13 21:17 | disposition home or self-care (01) ==
PROVIDERS: Emergency Provider Physician Assistant; PCP Nurse Practitioner Family
DX: B34.9 Viral infection, unspecified (principal); M79.10 Myalgia, unspecified site; R05.1 Acute cough; R42 Dizziness and giddiness
CPT/HCPCS: 36415; 80053; 84145; 85652; 87040; 87637; 87798; 93005; 96361; 96365; 96375; 99284; 71045; 81003; 81015; 83605; 83735; 84484; 85025; 86140; 86618; 87086; 93010; J0131; J1100; J2060; J3360